=== PATIENT | female | born 1975 | race Caucasian/White ===

== ENCOUNTER → 2019-10-04 13:20 | Outpatient (CLI) | payer OTHER, SELFPAY ==
[2019-10-04 09:06] VITALS: BMI 22.6
== END ==
PROVIDERS: Referring Provider Nurse Practitioner Women's Health; Visit Provider Nurse Practitioner Women's Health
DX: Z12.4 Encounter for screening for malignant neoplasm of cervix (principal)
CPT/HCPCS: 87624; 88175; G0145

== ENCOUNTER → 2019-11-08 14:44 | Outpatient (CLI) | payer OTHER, SELFPAY ==
[2019-11-05 14:06] VITALS: BMI 23.8
[2019-11-08 15:52] LABS: Thyroid Stim Hormone (TSH) 2.49 uIU/mL (0.358-3.74)
== END ==
PROVIDERS: Nurse Practitioner Women's Health; PCP Internal Medicine; Referring Provider Obstetrics & Gynecology; Visit Provider Obstetrics & Gynecology
DX: R10.2 Pelvic and perineal pain (principal)
CPT/HCPCS: 36415; 84443

== ENCOUNTER → 2019-11-13 12:55 | Outpatient (CLI) | payer OTHER, SELFPAY ==
[2019-11-05 14:06] VITALS: BMI 23.8
--- NOTE | 2019-11-13 12:56 | US_ITS ---
STUDY: ULTRASOUND TRANSVAGINAL CLINICAL: Female, 44 years old. PELVIC PAIN -- UNSUCCESSFUL IUD REMOVAL TECHNIQUE: Transabdominal and Transvaginal COMPARISON: None. FINDINGS: Normal uterine size measuring 7.4 x 5.4 x 3.1 cm in maximal craniocaudal dimension. There are no myometrial masses. Normal endometrial thickness measuring 4 mm. Metallic IUD in uterine fundus. There are no endometrial masses. Small amount of fluid in the endometrium. Normal uterine cervix. Normal right ovary, measuring 2.9 x 2.8 x 2.0 cm. There are multiple follicles without a dominant cyst. Normal left ovary, measuring 2.7 x 2.1 x 1.8 cm. There are multiple follicles without a dominant cyst. There is no free fluid in the pelvis. Polycystic ovary disease: No. US/Transvaginal Non- IMPRESSION: Metallic IUD noted in the uterine fundus. Small amount fluid in the endometrial canal. Electronically Signed: Star Gomez DO at 8:28 EST Tel , Service support ,
--- NOTE | 2019-11-13 12:56 | US_ITS ---
STUDY: ULTRASOUND TRANSVAGINAL CLINICAL: Female, 44 years old. PELVIC PAIN -- UNSUCCESSFUL IUD REMOVAL TECHNIQUE: Transabdominal and Transvaginal COMPARISON: None. FINDINGS: Normal uterine size measuring 7.4 x 5.4 x 3.1 cm in maximal craniocaudal dimension. There are no myometrial masses. Normal endometrial thickness measuring 4 mm. Metallic IUD in uterine fundus. There are no endometrial masses. Small amount of fluid in the endometrium. Normal uterine cervix. Normal right ovary, measuring 2.9 x 2.8 x 2.0 cm. There are multiple follicles without a dominant cyst. Normal left ovary, measuring 2.7 x 2.1 x 1.8 cm. There are multiple follicles without a dominant cyst. There is no free fluid in the pelvis. Polycystic ovary disease: No. US/Pelvic (Non ) IMPRESSION: Metallic IUD noted in the uterine fundus. Small amount fluid in the endometrial canal. Electronically Signed: Star Gomez DO at 8:28 EST Tel , Service support ,
--- NOTE | 2019-11-13 12:58 | BI_ITS ---
MAMMOGRAPHY - BILATERAL SCREENING REASON FOR EXAM: Female, 44 years old. Routine annual screening examination. PERTINENT HISTORY: Aunt with breast cancer. History of bilateral breast implants. TECHNIQUE: Digital bilateral breast sofia (3D mammographic acquisition) in the CC and MLO projections. 2-D mediolateral oblique (MLO) and craniocaudad (CC) views of both breasts were obtained. CAD: Full Field Digital Mammography with Computer Added Detection was performed. COMPARISON: Comparison is made with prior study dated February 23, 2013. FINDINGS: Breast Composition: The breasts are heterogeneously dense, which may obscure small masses. There are no dominant masses or suspicious calcifications. Stable appearance of the bilateral breast implants. No other significant abnormalities are identified. There has been no significant change since the prior study. BI/SCREEN MAMM (CAD) W/SOFIA BILAT IMPRESSION: Stable bilateral screening mammogram. Yearly follow-up mammogram recommended. (A) ASSESSMENT CATEGORY: BIRADS Category 2: Benign. A letter regarding these results will be sent to the patient by the facility within 30 days. Approximately 10% of breast cancers are not detected by mammography. A normal mammogram should not delay biopsy of a clinically suspicious abnormality. [id number] Electronically Signed: Gatito Islas, at 15:48 EST , Service support ,
== END ==
PROVIDERS: PCP Internal Medicine; Referring Provider Nurse Practitioner Women's Health; Visit Provider Nurse Practitioner Women's Health
DX: Z12.31 Encounter for screening mammogram for malignant neoplasm of breast (principal); R10.2 Pelvic and perineal pain; Z98.82 Breast implant status; Z80.3 Family history of malignant neoplasm of breast
CPT/HCPCS: 76706; 76830; 76856; 77063; 77067

== ENCOUNTER 2020-02-05 08:41 | Day surgery (SDC) | payer OTHER, SELFPAY ==
[2019-11-05 14:06] VITALS: BMI 23.8
[2019-12-03 14:15] VITALS: BMI 23.8
--- NOTE | 2020-02-05 08:56 | HP.PCM_ITS ---
- Problem List (1) Cervical stenosis (uterine cervix) Status: Acute (2) Malpositioned IUD Status: Acute Comment: unable to remove in office History and Physical Date of Admission: 02/05/20 Intake Vital Signs 12/03/19 Height 5 ft 4 in 12/03/19 Weight: 139 lb 12/03/19 BMI 23.8 12/03/19 BP 122/80 H Intake Visit Reasons: pre op IUD removal/insertion Chief Complaint: pre op IUD removal and insertion Transportation Superintendent Required: No Is patient in pain?: No Allergies No Known Allergies Allergy (Verified 11/22/19 13:10) Medications multivitamin,ti-[id number] 1 tab PO DAILY 12/03/19 [History Confirmed 12/03/19] Is last menstrual period known: No Post menopausal: No Patient : No : No [facility] Medical History Anemia (Acute) Anxiety (Acute) Chest pain (Acute) Diarrhea (Acute) Fatigue (Acute) GERD (gastroesophageal reflux disease) (Acute) Hay fever (Acute) Hemorrhoid (Acute) Hypoglycemia (Acute) Low HDL (under 40) (Acute) Social History (Updated 12/03/19 @ 14:[address] Becky Fong MD) number of children: 2 current occupational status: employed current occupation: [employer] Smoking Status: Never smoker alcohol intake: never substance use type: does not use seatbelt use: always do you feel safe at home: Yes HPI pre op IUD removal/insertion: Details: HUSAM GAINES is a 44 year old who presents for preop appointment. she is having an IUD removal and reinsertion. she has cervical stenosis and was ujable to have it removed in the office Female Reproductive History Menopausal Symptoms: No hot flashes, No night sweats, No difficulty concentrating, No change in libido Pregancy History 2 Elective abortions Hx Para 2 Spontaneous abortions Hx # Term Pregnancies Ectopic pregnancies Hx # Pregnancies Multiple births # of living children 2 ROS Const Constitutional: Reports system reviewed and no additional complaints, except as docu; denies night sweats Eyes Eyes: Reports system reviewed and no additional complaints, except as docu GI GI: Denies abdominal pain or change in bowel habits : Reports as per HPI; denies hot flashes Psych Psych: Denies change in sex drive or difficulty concentrating Exam Const General: cooperative, healthy appearing, comfortable, no acute distress, well developed Nutritional Appearance: average body habitus Orientation: alert HENMT Head: normal to inspection, normocephalic Ears: hearing grossly normal bilaterally, external ears normal Nose: external nose normal, nares normal Face and sinus: normal facial exam Neck Neck: normal visual inspection, no lymphadenopathy, trachea midline Thyroid: thyroid normal Resp Effort & Inspection: normal respiratory effort Musc Other: gross motor intact no deficits, full bilateral strength Skin General: no rashes or lesions noted Neuro Motor: muscle tone normal throughout Assessment & Plan Problems 1. Malpositioned IUD T83.32XA unable to remove in office 2. Cervical stenosis (uterine cervix) N88.2 plan iud removal and reinsertion Plan After discussing the patient's diagnosis and treatment plan options, patient wishes to proceed with surgical management. I have discussed with the patient the risks, benefits, and alternatives of the procedure which include but are not limited to risks of anesthesia, bleeding, infection, possible damage to bowel, bladder, or surrounding vasculature which could lead to additional surgery to evaluate any complications. Patient agrees to procedure and wishes to proceed. Coding Level of Care Code No Charge Diagnoses Malpositioned IUD T83.32XA Cervical stenosis (uterine cervix) N88.2 UPDATE- I have seen the patient and performed any clinically relevant updates to the history and physical exam. Becky Fong MD
--- NOTE | 2020-02-05 08:57 | PCM.OPRPT ---
Problem List (1) Cervical stenosis (uterine cervix) Status: Acute (2) Malpositioned IUD Status: Acute Comment: unable to remove in office Report of Operation Date of Procedure: 02/05/20 Pre-Operative Diagnosis: malpositioned iud cervical stenosis Post-Operative Diagnosis: SAME Surgery/Procedure Performed:: iud removal and reinsertion Type of Anesthesia:: MAC Special Medications: none Specimen's removed: iud Drains: none Estimated Blood Loss (mL): minimal Fluids Replaced: crystalloid Description of Procedure: Patient was placed under MAC anesthesia and the cervix was dilated and operative hysteroscope used to enter into the lining of the uterus. The IUD was visualized to be in the lining of the uterus in the correct position but the strings were folded up over. Strings were grasped with hysteroscopic forceps and the IUD removed without difficulty. Liletta IUD was then inserted without complication uterus sounded to 7 cm. Strings were cut to 3 cm. All instruments removed from the vagina patient was awoken Grafts/Implants Used: iud liletta - Complications none Multi Select Codes - Urinary/Genital Urinary/Genital CPT Codes: 49074 Insert IUD - removal iud also, 36711 Hysteroscopy, diagnostic
--- NOTE | 2020-02-05 08:59 | PCM.DC.D&C ---
Discharge Diet: No Restrictions Discharge Activity: Return to Normal Activity, May Shower, May Take a Tub Bath Allergies/Adverse Reactions: Allergies No Known Allergies Allergy (Verified 02/05/20 08:58) Medications to take at Discharge Naproxen [Naprosyn] 250 - 500 mg PO Q8H PRN PRN #30 tab 02/05/20 The following prescriptions were given: Naproxen [Naprosyn] 250 - 500 mg PO Q8H PRN PRN #30 tab PRN Reason: MILD PAIN Transmission Status: Pending to [facility] Orders to be completed after discharge: Type & Screen Time Frame: 02/05/20, Facility: [facility], Location: Laboratory CBC-Complete Blood Cnt No Diff Time Frame: 02/05/20, Facility: [facility], Location: Laboratory ,Urine Time Frame: 02/05/20, Facility: [facility], Location: Laboratory Primary Care Physician: Maritza Busby DO [Primary Care Provider] - Test Results: Test results from this visit will be discussed in further detail at your follow-up appointment, if applicable. Please Follow Up With: Becky Fong MD - [phone]
[2020-02-05 09:02] LABS: Internal QC Validated? YES +Cl - CLEAR BKGD; Pregnancy, Urine Negative Negative
[2020-02-05 09:07] VITALS: BP 125/75; PULSE 52; RESP 16; TEMP 37.7; O2SAT 93; BMI 24.5
[2020-02-05 09:12] LABS: Hemoglobin 14.5 g/dL (12.0-15.0); Mean Corp Hgb Conc 33.7 g/dL (32-36); Mean Corpuscular Volume 88.8 fL (81-99); Mean Platelet Vol. 9.2 fl (6.2-12.0); Platelet Count 309 K/mm3 (150-450); RBC Distribution Width CV 11.9 % (11.6-14.6); RBC Distribution Width SD 37.9 fl (35.1-43.9); Red Blood Count 4.84 M/mm3 (4.2-5.4); White Blood Count 7.2 K/mm3 (4.4-11.0)
[2020-02-05] MEDS: Lactated Ringers 1,000 ML 100 ML IV (09:13)
[2020-02-05 10:20] VITALS: BP 100/61; BP 125/75; PULSE 74; RESP 18; TEMP 37.1; O2SAT 96
[2020-02-05] MEDS: Levonorgestrel IUD (Liletta) 1 EACH IY (10:20)
[2020-02-05 10:25] VITALS: BP 125/75; BP 97/66; PULSE 75; RESP 18; O2SAT 95
[2020-02-05 10:30] VITALS: BP 103/69; BP 125/75; PULSE 68; RESP 18; O2SAT 95
[2020-02-05 10:35] VITALS: BP 104/73; BP 125/75; PULSE 699; RESP 18; TEMP 36.8; O2SAT 96
[2020-02-05 11:13] VITALS: BP 125/75
== END 2020-02-05 11:26 | disposition home or self-care (01) ==
LOC: SDC 08:42 → AC 08:43
PROVIDERS: PCP Internal Medicine; Referring Provider Obstetrics & Gynecology; Visit Provider Obstetrics & Gynecology
PROC: (CPT 58661; principal; 2020-02-05 10:20)
DX: Z30.433 Encounter for removal and reinsertion of intrauterine contraceptive device (principal); T83.32XA Displacement of intrauterine contraceptive device, initial encounter; N88.2 Stricture and stenosis of cervix uteri; K21.9 Gastro-esophageal reflux disease without esophagitis; Z87.891 Personal history of nicotine dependence
CPT/HCPCS: 00940; 58300; 58301; 81025; 85027; 86850; 86900; 86901; J7120; J2405

== ENCOUNTER → 2020-10-06 | Outpatient (CLI) | payer OTHER, SELFPAY ==
[2020-10-06 08:09] VITALS: BMI 25.0
[2020-10-09 13:07] LABS: HPV APTIMA, High Risk Negative (Negative)
== END | disposition home or self-care (01) ==
LOC: LABSPEC 12:25
PROVIDERS: PCP Internal Medicine; Referring Provider Nurse Practitioner Women's Health; Visit Provider Nurse Practitioner Women's Health
DX: Z12.4 Encounter for screening for malignant neoplasm of cervix (principal)
CPT/HCPCS: 87624; 88175; G0145

== ENCOUNTER → 2020-11-17 08:16 | Outpatient (CLI) | payer OTHER, SELFPAY ==
[2020-10-06 08:09] VITALS: BMI 25.0
--- NOTE | 2020-11-17 08:17 | BI_ITS ---
MAMMOGRAPHY - BILATERAL SCREENING REASON FOR EXAM: Female, 45 years old. Routine annual screening examination. PERTINENT HISTORY: Aunt with breast cancer. TECHNIQUE: Digital bilateral breast sofia (3D mammographic acquisition) in the CC and MLO projections. 2-D mediolateral oblique (MLO) and craniocaudad (CC) views of both breasts were obtained. CAD: Full Field Digital Mammography with Computer Added Detection was performed. COMPARISON: Comparison is made with prior study dated 11/13/2019 and 02/23/2013. FINDINGS: Breast Composition: The breasts are heterogeneously dense, which may obscure small masses. There are no dominant masses or suspicious calcifications. Stable appearance of the bilateral breast implants. No other significant abnormalities are identified. There has been no significant change since the prior study. BI/SCRN MAMM (CAD)W/SOFIA BILAT IMPRESSION: Stable bilateral screening mammogram. Yearly follow-up mammogram recommended. (A) ASSESSMENT CATEGORY: BIRADS Category 2: Benign. A letter regarding these results will be sent to the patient by the facility within 30 days. Approximately 10% of breast cancers are not detected by mammography. A normal mammogram should not delay biopsy of a clinically suspicious abnormality. [id number] Electronically Signed: Gatito Islas MD at 10:32 EST , Service support ,
== END ==
PROVIDERS: PCP Internal Medicine; Referring Provider Nurse Practitioner Women's Health; Visit Provider Nurse Practitioner Women's Health
DX: Z12.31 Encounter for screening mammogram for malignant neoplasm of breast (principal)
CPT/HCPCS: 77063; 77067

== ENCOUNTER 2021-09-26 01:30 | Emergency (ER) | payer OTHER, SELFPAY ==
[2021-09-26 01:30] VITALS: BP 148/100; PULSE 74; RESP 16; TEMP 37.1; O2SAT 99; BMI 24.0
[2021-09-26] MEDS: DiphenhydrAMINE 50 MG/ML Syringe 25 MG IV (01:48)
[2021-09-26] MEDS: MethylPREDNISolone 125 MG/2 ML Vial IV (01:49)
--- NOTE | 2021-09-26 01:59 | EX.ED.DYSGE1 ---
HPI History of Present Illness Chief Complaint: Allergic Reaction Informant: patient Onset/Context/Timing Onset: Days Current Severity: Moderate Maximum Severity: Moderate Narrative Narrative: Patient presents secondary to hives. She states she woke yesterday morning covered in hives. They are itching and burning. Patient states that she was taking Sudafed and Mucinex DM earlier this week secondary to URI symptoms. She has had both of these medications in the past with no problem. She denies any other new medications. Patient recently returned from [place] where she was visiting an ill family member. She took a Covid test prior to leaving. Upon returning just before she felt very rundown and then had URI symptoms earlier this week. She just found out that the family member that she was visiting tested positive for Covid 2 days ago. Patient states her URI symptoms are improved at this time but now has hives. She denies throat tightness or difficulty swallowing. No shortness of breath. [facility] Medical History (Updated 09/26/21 @ 04:[address] Светлана James MD) Anemia Anxiety Chest pain Diarrhea Fatigue GERD (gastroesophageal reflux disease) Hay fever Hemorrhoid Hypoglycemia Low HDL (under 40) Home Medications zipan PO 10/06/20 [History Last Taken Unknown] famotidine [Pepcid] 40 mg PO DAILY #7 tab 09/26/21 [Rx Last Taken Unknown] prednisone See Taper PO DAILY #63 tab 09/26/21 [Rx Last Taken Unknown] Allergy/AdvReac Type Severity Reaction Status Date / Time No Known Allergies Allergy Verified 09/26/21 01:34 Family History Father Hypertension Hypercholesterolemia Mother Hypertension Other Cancer Diabetes Surgical History History of breast implant History of hernia surgery History of tonsillectomy Social History number of children: 2 current occupational status: employed current occupation: [employer] Smoking Status: Never smoker alcohol intake: never substance use type: does not use seatbelt use: always do you feel safe at home: Yes ROS ROS ED Constitutional Constitutional ED: Denies chills or fever(s) Eyes Eyes: Denies change in vision ENT ENT ED: Denies sore throat Cardiovascular Cardiovascular: Denies chest pain Respiratory/Chest Respiratory/Chest: Denies cough or dyspnea Gastrointestinal Gastrointestinal: Denies abdominal pain, diarrhea, nausea or vomiting Genitourinary Genitourinary ED: Denies dysuria Musculoskeletal Musculoskeletal: Denies back pain Integumentary Reports rash Neurologic Neurologic: Denies headache(s) or weakness Allergic/Immunologic Allergic/Immunologic ED: Denies urticaria EXAM Physical Exam Const Vital Signs: 09/26/21 01:30 Temperature 98.7 F Temperature Source Oral Pulse Rate 74 Respiratory Rate 16 Blood Pressure 148/100 H Blood Pressure Mean 116 Pulse Ox 99 Oxygen Delivery Method Room Air Positive well nourished and well developed General Appearance ED: well developed HEENT Reports moist mucous membranes Eyes PERRL and EOMs intact bilaterally Neck supple Chest Wall inspection of chest normal and palpation of chest normal Resp normal respiratory effort and clear to auscultation bilaterally Cardio regular rate and regular rhythm GI non-tender Palpation: soft Neuro oriented x3 Sensorium / Orientation: alert Psych mental status grossly normal Skin Skin Narrative: Urticarial lesions noted diffusely. No vesicles. No sign of secondary infection. MDM MDM MDM Narrative Medical decision making narrative: Patient was given Benadryl, Pepcid, Solu-Medrol. Covid PCR test sent. Treatment and Re-Evaluation Comments:: On repeat evaluation the urticarial lesions are improving. Patient will be given prescription for prednisone and Pepcid. She has Benadryl at home to take and I encouraged her to take it every 6 hours. The results of her Covid PCR test will be texted to her. Discharge Plan Triage Chief Complaint: Allergic Reaction ED Provider: Светлана James Dx/Rx/DC Orders Clinical Impression: Urticaria Instructions: ED Hives (Adult) Prescriptions: New prednisone 10 mg tablet See Taper mg PO DAILY Qty: 63 RF: 0 famotidine [Pepcid] 40 mg tablet 40 mg PO DAILY Qty: 7 RF: 0 No Action zipan PO RF: 0 Primary Care Provider: Maritza Busby Referrals: Maritza Busby DO [Primary Care Provider] - 5-7 Days Disposition Disposition: Home, Self Care
[2021-09-26] MEDS: Famotidine 200 MG/20 ML MDV 20 MG in 0.9% Normal Saline (Pres. free 8 ML 300 MG IV (02:10)
[2021-09-26 04:13] VITALS: BP 128/78; PULSE 78; RESP 16; O2SAT 100
== END 2021-09-26 04:13 | disposition home or self-care (01) ==
PROVIDERS: Emergency Provider Emergency Medicine; PCP Internal Medicine
DX: L50.0 Allergic urticaria (principal)
CPT/HCPCS: 87635; 96374; 96375; 99283; A4216; J3490; U0003; U0005

== ENCOUNTER 2021-11-24 07:57 | Outpatient (CLI) | payer OTHER, SELFPAY ==
--- NOTE | 2021-11-24 07:59 | BI_ITS ---
MAMMOGRAPHY - BILATERAL SCREENING REASON FOR EXAM: Female, 46 years old. Routine annual screening examination. PERTINENT HISTORY: Aunt with breast cancer. Bilateral breast implants. TECHNIQUE: Digital bilateral breast sofia (3D mammographic acquisition) in the CC and MLO projections. 2-D mediolateral oblique (MLO) and craniocaudad (CC) views of both breasts were obtained. CAD: Full Field Digital Mammography with Computer Added Detection was performed. COMPARISON: Comparison is made with prior study dated 11/17/2020 and 11/13/2019. FINDINGS: Breast Composition: The breasts are extremely dense, which lowers the sensitivity of mammography. There are no dominant masses or suspicious calcifications. Stable appearance of the bilateral breast implants. No other significant abnormalities are identified. There has been no significant change since the prior study. BI/SCRN MAMM (CAD)W/SOFIA BILAT IMPRESSION: Stable bilateral screening mammogram. Yearly follow-up mammogram recommended. (A) ASSESSMENT CATEGORY: BIRADS Category 2: Benign. A letter regarding these results will be sent to the patient by the facility within 30 days. Approximately 10% of breast cancers are not detected by mammography. A normal mammogram should not delay biopsy of a clinically suspicious abnormality. [id number] Electronically Signed: Gatito Islas MD at 9:00 EST ,
== END 2021-11-24 23:59 | disposition home or self-care (01) ==
LOC: OPBI 07:58
PROVIDERS: PCP Internal Medicine; Visit Provider Nurse Practitioner Women's Health
DX: Z12.31 Encounter for screening mammogram for malignant neoplasm of breast (principal); Z98.82 Breast implant status
CPT/HCPCS: 77063; 77067

== ENCOUNTER → 2024-07-18 | Outpatient (CLI) | payer OTHER, SELFPAY ==
--- NOTE | 2024-07-18 12:27 | BI_ITS ---
MAMMOGRAPHY - BILATERAL SCREENING REASON FOR EXAM: Female, 48 years old. Routine annual screening examination. PERTINENT HISTORY: Aunt with breast cancer. Bilateral breast implants. TECHNIQUE: Digital bilateral breast sofia (3D mammographic acquisition) in the CC and MLO projections. 2-D mediolateral oblique (MLO) and craniocaudad (CC) views of both breasts were obtained. CAD: Full Field Digital Mammography with Computer Added Detection was performed. COMPARISON: Comparison is made with prior study dated November 24, 2021 and November 17, 2020. FINDINGS: Breast Composition: The breasts are heterogeneously dense, which may obscure small masses. There are no dominant masses or suspicious calcifications. Stable appearance of the bilateral breast implants. No other significant abnormalities are identified. There has been no significant change since the prior study. BI/SCRN MAMM (CAD)W/SOFIA BILAT IMPRESSION: Stable bilateral screening mammogram. Yearly follow-up mammogram recommended. (A) ASSESSMENT CATEGORY: BIRADS Category 2: Benign. A letter regarding these results will be sent to the patient by the facility within 30 days. Approximately 10% of breast cancers are not detected by mammography. A normal mammogram should not delay biopsy of a clinically suspicious abnormality. [id number] Electronically Signed: Gatito Islas MD at 14:12 EDT ,
[2024-07-25 14:09] LABS: HPV APTIMA, High Risk Negative (Negative)
== END | disposition home or self-care (01) ==
PROVIDERS: PCP Internal Medicine; Referring Provider Nurse Practitioner Women's Health; Visit Provider Nurse Practitioner Women's Health
DX: Z12.31 Encounter for screening mammogram for malignant neoplasm of breast (principal); R87.610 Atypical squamous cells of undetermined significance on cytologic smear of cervix (ASC-US)
CPT/HCPCS: 77063; 77067; 87624; 88175; G0145